=== PATIENT | male | born 1945 | race Caucasian/White ===

== ENCOUNTER 2018-02-19 13:54 | Emergency (ER) | payer OTHER, MEDICARE, BC ==
[~2018-02-19] VITALS: Ht 182.9 cm; Wt 111.1 kg
[~2018-02-19 13:54] MED LIST: ASPI81EC PO; BENAML20/5 PO; MECL25 PO; PRAV20 PO; PRAZ2 PO
[2018-02-19] MEDS ORDERED: Norco 5-325 Ta1 EACH PO (15:21)
== END 2018-02-19 15:50 | disposition other institution (70) ==
LOC: ER 13:54
DX: S43.402A Unspecified sprain of left shoulder joint, initial encounter (principal); I10 Essential (primary) hypertension; E78.00 Pure hypercholesterolemia, unspecified; Z79.899 Other long term (current) drug therapy; Z79.82 Long term (current) use of aspirin; Z87.891 Personal history of nicotine dependence; V43.52XA Car driver injured in collision with other type car in traffic accident, initial encounter
CPT/HCPCS: 73030; 73080